=== PATIENT | female | born 1955 | race Caucasian/White ===

== ENCOUNTER 2019-03-04 10:07 | Emergency (ER) | payer SELFPAY ==
[~2019-03-04] VITALS: Ht 167.6 cm; Wt 91.0 kg
[2019-03-04] MEDS ORDERED: POTA10CA PO (10:31)
[2019-03-04] MEDS ORDERED: FERR-46 PO (10:36)
[2019-03-04] MEDS ORDERED: MAGN30OR PO (10:36)
[2019-03-04] MEDS ORDERED: CIME300T PO (10:38)
[2019-03-04] MEDS ORDERED: CYAN1TAB29 PO (10:40)
[2019-03-04] MEDS ORDERED: ALPR2TAB2 PO (10:40)
[2019-03-04] MEDS ORDERED: PROM50SU6 PR (10:41)
[2019-03-04 11:26] LABS: BASOPHILS # (AUTO) 0.11 x10^3/uL (0-0.1); BASOPHILS % (AUTO) 1 % (0-1); EOSINOPHILS # (AUTO) 0.21 x10^3/uL (0-0.4); EOSINOPHILS % (AUTO) 3 % (1-7); LYMPHOCYTES # (AUTO) 2.55 x10^3/uL (1-3.4); LYMPHOCYTES % (AUTO) 32 % (22-44); MD NO; MEAN CORPUSCULAR HEMOGLOBIN 29.3 pg (27.0-34.8); MEAN CORPUSCULAR HGB CONC 33.4 g/dL (32.4-35.8); MEAN CORPUSCULAR VOLUME 87.6 fL (80-100); MEAN PLATELET VOLUME 9.3 fL (7.4-10.4); MONOCYTES # (AUTO) 0.57 x10^3/uL (0.2-0.8); MONOCYTES % (AUTO) 7 % (2-9); NEUTROPHILS # (AUTO) 4.52 x10^3/uL (1.8-6.8); NEUTROPHILS % (AUTO) 57 % (42-75); PLATELET COUNT 243 x10^3/uL (130-400); RED BLOOD COUNT 4.58 x10^6/uL (3.82-5.3); RED CELL DISTRIBUTION WIDTH 13.6 % (9.6-15.2)
[2019-03-04 11:37] LABS: ALBUMIN 3.6 g/dL (3.4-5.0); ANION GAP 8 mmol/L (5-15); CALCIUM 9.3 mg/dL (8.5-10.1); CHLORIDE 106 mmol/L (98-107); CREATININE 0.85 mg/dL (0.55-1.02)
[2019-03-04 11:41] LABS: TROPONIN I < 0.015 ng/mL (0.000-0.045)
[2019-03-04] MEDS ORDERED: NITROGLYCERIN SINGLE TAB 0.4 MG SL ONE ×2 (11:51→12:00)
[2019-03-04] MEDS ORDERED: NITROGLYCERIN SINGLE TAB 0.4 MG SL PRN (12:00)
--- NOTE | 2019-03-04 12:01 | NUR ---
PATIENT TALKING ON PHONE. UNABLE TO ASSESS WETHER PATIENT HAS HAD RELIEF OF HER CHEST PAIN AT THIS TIME.
--- NOTE | 2019-03-04 12:20 | NUR ---
PATIENT OFF OF TELEPHONE. PT C/O NO RELIEF FROM FIRST NITRO SL. SECOND NITRO GIVEN. WILL CONTINUE TO MONITOR.
[2019-03-04 13:55] VITALS: BP 163/90
--- NOTE | 2019-03-04 13:56 | NUR ---
Patient given discharge instructions and they have confirmed that they understand the instructions. Patient ambulatory with steady gait. Resources for senior care were given to patient.
== END 2019-03-04 14:41 | disposition home or self-care (01) ==
LOC: ED 14:35
DX: R07.89 Other chest pain (principal); Z79.82 Long term (current) use of aspirin
CPT/HCPCS: 36415; 71045; 80048; 82040; 84484; 85025; 85379; 93005; 99284